=== PATIENT | female | born 1955 | race Caucasian/White ===

== ENCOUNTER 2022-06-29 14:05 | Emergency (ER) | payer MEDICARE, SELFPAY ==
[2022-06-29 15:44] VITALS: BP 146/74; PULSE 94; RESP 16; TEMP 36.9; O2SAT 96; BMI 28.5
--- NOTE | 2022-06-29 15:58 | EXP.UTC ---
Discharge Plan Disposition Patient Disposition: Home, Self-Care Condition: Good Prescriptions Prescriptions: New azithromycin [Zithromax] 250 mg tablet 250 mg PO UD DOSE PK Qty: 6 0RF Rx Instructions: Take two (2) tablets today, then one (1) tablet days #2 thru #5 Referrals Follow up/Referrals: Robson Rider MD [Primary Care Provider] - See instructions Activity Restrictions/Add. Instructions Additional Instructions/Restrictions: Drink plenty of fluids. Take tylenol or ibuprofen for pain or fever. Take the medications as directed. Follow up with your regular doctor. GO TO THE ER FOR ANY WORSENING SYMPTOMS Clinical Impressions Clinical Impression: Sinusitis Stand Alone Forms Stand Alone Forms: Work/School Release Instructions Patient Instructions: Sinusitis, DI for Sinusitis Discharge ED Provider: Vince Sanches [facility] General Stated complaint: cough, congestion Mode of Arrival: Ambulatory Source of Information: Patient Limitations: No Limitations Time Seen by Provider: 06/29/22 15:58 Description of Symptoms (Recalled from Triage Doc. by RN): pt comes in with c/o cough. pt states that she feels like she pulled a muscle in her back from coughing. pt was exposed to covid. HEENT Symptoms (Recalled from RN notes): No Resp Symptoms (Recalled from RN notes): Yes Skin Symptoms (Recalled from RN notes): No MS Symptoms (Recalled from RN notes): Yes Functional Status (Recalled from RN notes): n/a History of Present Illness Provider Complaint: She states that she has been coughing frequently and feeling bad for the past 1 day. She has been exposed to covid-19. Related Data Previous Rx's Medication Instructions Recorded azithromycin 250 mg tablet 250 mg PO UD DOSE PK #6 tabs 06/29/22 (Zithromax) Allergies Allergy/AdvReac Type Severity Reaction Status Date / Time Ibuprofen Allergy Unknown Uncoded 10/12/17 14:45 Nonsteroidal Allergy Unknown Uncoded 10/12/17 14:45 Antiinflammatory Drug Penicillin Allergy Unknown Uncoded 10/12/17 14:45 Sulfonamide Related Allergy Unknown Uncoded 10/12/17 14:45 Worker's Comp Is this a Worker's Comp case?: No PFSH PFSH Social History Smoking Status: Former smoker alcohol intake: never current occupational status: employed Travel in the last 8 weeks: None ROS Obtained: Yes All systems reviewed & no additional complaints except as documented Constitutional Constitutional: Reports chills and Reports fever(s) Eyes Eyes: Denies eye discharge ENT Ears, Nose, Mouth, and Throat: Reports as per HPI Cardiovascular Cardiovascular: Denies chest pain Respiratory Respiratory: Denies chest congestion and Reports cough Gastrointestinal Gastrointestingal: Reports nausea; Denies abdominal pain, constipation, cramping, diarrhea or vomiting Musculoskeletal Musculoskeletal: Denies arthralgias Integumentary/Breasts Skin/Breast: Denies rash Neurologic Neurologic: Denies paresthesias Physical Exam General General appearance: alert and in no apparent distress Head Head exam: atraumatic, normocephalic and normal inspection Eye Eye exam: Present normal appearance, PERRL and EOMI ENT ENT exam: Present mucous membranes moist and normal external ear exam Expanded ENT Exam TM/Canal exam: Bilateral TM: erythema and bulging Nose exam: Absent sinus tenderness Mouth exam: Present normal external inspection; Absent drooling Teeth exam: Present normal inspection Throat exam: Present tonsillar erythema, tonsillomegaly and tonsillar exudate Neck Neck exam: Present normal inspection, full ROM and trachea midline; Absent tenderness, meningismus or lymphadenopathy Chest Chest inspection: Present normal inspection and symmetric chest wall rise; Absent tenderness Respiratory Respiratory exam: Present normal lung sounds bilaterally; Absent respiratory distress, wheezes or stridor Cardiovascular Car
[2022-06-29 16:17] VITALS: BP 146/74; PULSE 94; RESP 16; TEMP 36.9
== END 2022-06-29 16:18 | disposition home or self-care (01) ==
PROVIDERS: Emergency Provider Nurse Practitioner Family; PCP Internal Medicine
DX: J32.9 Chronic sinusitis, unspecified (principal)
CPT/HCPCS: 96372; 99212; C9803; G0463; J0696; U0003; U0005

== ENCOUNTER 2024-02-16 14:20 | Outpatient (CLI) | payer MEDICARE, SELFPAY ==
[2024-02-16 15:01] LABS: Basophils # 0.1 K/mm3 (0-0.2); Basophils % 0.6 % (0.1-2.0); Eosinophils # 0.2 K/mm3 (0.0-0.4); Eosinophils % 2.1 % (0.1-12.0); Hematocrit 38.2 % (37.0-47.0); Hemoglobin 12.8 g/dL (12.2-16.2); Lymphocytes # 2.1 K/mm3 (0.7-4.5); Lymphocytes % 26.8 % (10-50); Mean Corpuscular HGB Conc 33.6 g/dL (31.8-35.4); Mean Corpuscular Hemoglobin 32.4 pg (27.0-31.2); Mean Corpuscular Volume 96.5 fl (81-99); Mean Platelet Volume 8.8 fl (7.4-10.4); Monocytes # 0.4 K/mm3 (0.1-1.0); Monocytes % 5.6 % (1.7-9.3); Neutrophils % 64.8 % (37.0-80.0); Platelet Count 237 K/mm3 (142-424); Red Blood Count 3.96 M/mm3 (4.20-5.40); Red Cell Distribution Width 14.7 % (11.5-17.5); White Blood Count 7.7 K/mm3 (4.8-10.8)
[2024-02-16 16:06] LABS: 25-OH Vitamin D, Total 30.3 ng/mL (30-100)
[2024-02-23 15:29] LABS: Immunoglobulin E, Total 20 IU/mL (6-495)
== END 2024-02-16 23:59 | disposition home or self-care (01) ==
LOC: LAB 14:21
PROVIDERS: PCP Internal Medicine; Visit Provider Allergy & Immunology
DX: J45.50 Severe persistent asthma, uncomplicated (principal)
CPT/HCPCS: 36415; 82306; 82785; 85025

== ENCOUNTER 2025-07-30 15:50 | Outpatient (CLI) | payer MEDICARE, SELFPAY ==
[2025-07-30 17:57] LABS: Hematocrit 40.3 % (37.0-47.0); Hemoglobin 13.2 g/dL (12.2-16.2); Immature Granulocytes % 0.3 %; Mean Corpuscular HGB Conc 32.8 g/dL (31.8-35.4); Mean Corpuscular Hemoglobin 31.6 pg (27.0-31.2); Mean Corpuscular Volume 96.4 fl (81-99); Nucleated Red Blood Cells % 0 %; Platelet Count 255 K/mm3 (142-424); Red Blood Count 4.18 M/mm3 (4.20-5.40); Red Cell Distribution Width-SD 46.9 fL; White Blood Count 7.5 K/mm3 (4.8-10.8)
[2025-07-30 19:08] LABS: Alanine Aminotransferase 15 U/L (12-78); Albumin Level 4.3 g/dl (3.5-5.0); Albumin/Globulin Ratio 1.8 (1.1-1.8); Alkaline Phosphatase 106 U/L (38-126); Anion Gap 15.6 mEq/L (5-15); Aspartate Amino Transferase 25 U/L (14-36); Bilirubin,Total 0.7 mg/dl (0.2-1.3); Blood Urea Nitrogen 12 mg/dl (7-17); Calcium 9.0 mg/dl (8.4-10.2); Carbon Dioxide 26 mmol/L (22.0-30.0); Chloride 102 mmol/L (98-107); Cholesterol 227 mg/dl (140-200); Creatinine,Serum 0.70 mg/dl (0.52-1.04); Estimated Glomerular Filt Rate 82 ml/min (>60); GFR (African American) 100 ML/MIN (>60); Globulin 2.4 g/dL (1.3-3.2); Glucose 83 mg/dl (74-100); HDL Cholesterol 56 mg/dl (40-60); Potassium 4.6 mmoL/L (3.5-5.1); Sodium 139 mmol/L (136-145); Total Protein,Serum 6.7 g/dl (6.3-8.2); Triglycerides 111 mg/dl (30-150)
--- OUTSIDE RECORDS SUMMARY | 2025-07-31 01:49 | XMS_ITS | Encounter Summary ---
Author Organization [place] [address] Care Team Providers Care Box Lining Machine Feeder Name Role Phone Delano Means MD Primary Care Provider Robson Duvall MD Primary Care Provider Unavailable Giacomo Delong MD Primary Care Provider Encounter Details Date Type Department Care Team (Late st Contact Info) Description 02/03/2018 E-Visit [facility] [address] [place] [address] Delano Means MD E-Visit Submission: Cough Social History Tobacco Use Types Packs/Day Years Used Date Smoking Tobacco: Every Day Smokeless Tobacco: Never Alcohol Use Standard Drinks/Week Comments Not Asked 0 (1 standard drink = 0.6 oz pur e alcohol) Comments No Sex and Gender Information Value Date Recorded Sex Assigned at Not on file Legal Sex Female 9:03 PM EDT Gender Identity Not on file Sexual Orientation Not on file documented as of this encounter Functional Status * Is the person deaf or does he/she have serious difficulty hearing? Answer Date of Assessment Author No 01/28/2018 12:04 PM EDT David Duncan RMA * Is the person blind or does he/she have serious difficulty seeing even when wearing glasses? Answer Date of Assessment Author No 01/28/2018 12:04 PM EDT David Duncan RMA * Does this person have serious difficulty walking or climbing stairs? Answer Date of Assessment Author No 01/28/2018 12:04 PM EDT David Duncan RMA * Does this person have difficulty dressing or bathing? Answer Date of Assessment Author No 01/28/2018 12:04 PM EDT David Duncan RMA * Because of a physical, mental or emotional condition, does this person have difficulty doing errands alone such as visiting a doctor's office or shopping? Answer Date of Assessment Author No 01/28/2018 12:04 PM EDT David Duncan RMA documented as of this encounter Mental Status * Because of a physical, mental or emotional condition, does this person have serious difficulty concentrating, remembering or making decisions? Answer Entry Date Author No 01/28/2018 12:04 PM EDT David Duncan RMA documented in this encounter Plan of Treatment Not on file documented as of this encounter Goals Goal Patient Goal Type Associated Problems Recent Progress Patient-Stated? Author Eat better, exercise, reach an ideal body weight General No Delano Means MD Stay Tobacco Free Lifestyle No Delano Means MD documented as of this encounter Visit Diagnoses Not on filedocumented in this encounter Additional Health Concerns Assessment Noted Time PHQ-9 Depression Total Score: 1 01/29/20 18 12:04 PM EDT PHQ-2 Depression Total Score: 1 01/29/20 18 12:04 PM EDT documented as of this encounter Care Teams Box Lining Machine Feeder Relationship Specialty Start Date End Date Delano Means MD PCP - General Internal Medicine 02/14/13 10/28/20 Robson Rider MD PCP - General Internal Medicine 10/29/20 09/01/22 Giacomo Delong MD [address] [facility] [address] [place] [address] PCP - General Internal Medicine 09/02/22 11/01/23 documented as of this encounter
--- OUTSIDE RECORDS SUMMARY | 2025-07-31 01:49 | XMS_ITS | Encounter Summary ---
Author Organization [place] [address] Care Team Providers Care Pathology Laboratory Director Name Role Phone Delano Means MD Primary Care Provider Robson Duvall MD Primary Care Provider Unavailable Giacomo Delong MD Primary Care Provider Encounter Details Date Type Department Care Team (Late st Contact Info) Description 05/24/2018 E-Visit [facility] [address] [place] [address] Delano Means MD RE:(No subject) Social History Tobacco Use Types Packs/Day Years [...] No 01/28/2018 12:04 PM EDT David Duncan RMAlise * Because of a physical, mental or emotional condition, does this person have difficulty doing errands alone such as visiting a doctor's office or shopping? Answer Date of Assessment Author No 01/28/2018 12:04 PM EDT David Duncan RMAlise documented as of this encounter Mental Status * Because of a physical, mental or emotional condition, does this person have serious difficulty concentrating, remembering or making decisions? Answer Entry Date Author No 01/28/2018 12:04 PM EDT David Duncan RMA documented in this encounter Ordered Prescriptions Prescription Sig Dispense Quantity Refills Last Filled Start Date End Date levOFLOXacin (LEVAQUIN) 250 mg Oral Tablet Take 1 Tab by mouth daily for 7 days. 7 Tab 1 05/25/2018 06/01/2018 documented in this encounter Miscellaneous Notes * Patient Instructions - Delano Means MD - 05/24/2018 2:40 PM EDT Sent In meds Call prn documented in this encounter Plan of Treatment [...] documented as of this encounter Care Teams Pathology Laboratory Director Relationship Specialty Start Date End Date Delano Means MD PCP - General Internal Medicine 02/14/13 10/28/20 Robson Rider MD PCP - General Internal Medicine 10/29/20 09/01/22 Giacomo Delong MD [address] [place] [id number] PCP - General Internal Medicine 09/02/22 11/01/23 documented as of this encounter
--- OUTSIDE RECORDS SUMMARY | 2025-07-31 01:49 | XMS_ITS | Clinical Summary ---
Author Organization [facility] Address [address] [place] [address] Care Team Providers Care Soldering Inspector Name Role Phone Thu Bazan Primary Care Provider Unavailabl e Allergies Active Allergy Reactions Criticality Noted Date Comments Penicillins Anaphylaxis High 08/28/2016 Sulfa Antibiotics Anaphylaxis High 08/28/2016 Medications Zolpidem Tartrate (AMBIEN PO) Take by mouth Every Night. Active HYDROCODONE BITARTRATE PO Take by mouth. Active magnesium 30 MG tablet Take 30 mg by mouth 2 (Two) Times a Day. Active tiZANidine (ZANAFLEX) 4 MG tablet Take 4 mg by mouth At Night As Needed for muscle spasms. Active Family History Medical History Relation Name Comments Heart disease Father Heart disease Mother Relation Name Status Comments Father Mother Social History Tobacco Use Types Packs/Day Years Used Date Smoking Tobacco: Every Day Cigarettes Tobacco Cessation:Ready to Q uit: No; Counseling Given: No Abuse Screen Answer Date Recorded Unsafe at Home or Work/School Not on file Feels Threatened by Someone? Not on file 06/2023 Does Anyone Keep You from Co ntacting Others or Doint Things Outside the Home? Not on file 08/02/2023 Physical Sign of Abuse Present Not on file 1 Housing Stability Answer Date Recorded Current Living Arrangements Not on file 06/2023 Potentially Unsafe Housing Conditions Not on elba e 08/02/2023 Family and Community Support Answer Julian e Recorded Help with Day-to-Day Activities Not on file 08/02/2023 Lonely or Isolated Not on file 08/02/2023 Employment Answer Date Recorded Do you want help finding or keeping work or a buddy b? Not on file 08/02/2023 Disabilities Answer Date Recorded Concentrating, Remembering, or Making Decisions Difficulty Not on file 08/02/2023 Doing Errands Independently Difficulty Not on fi le 08/02/2023 Education Answer Date Recorded Help with school or training? Not on file Preferred Language Not on file 08/02/2023 Comments No Sex and Gender Information Value Date Recorded Sex Assigned at Not on file Legal Sex Female 11:33 AM EDT Gender Identity Not on file Sexual Orientation Not on file Last Filed Vital Signs Vital Sign Reading Time Taken Comments Blood Pressure - - Pulse 70 08/28/2016 5:58 PM EDT Temperature 36.6 C (97.9 F) 08/28/2016 5:58 PM EDT Respiratory Rate 18 08/28/2016 5:58 PM EDT Oxygen Saturation 99% 08/28/2016 5:58 PM EDT Inhaled Oxygen Concentration - - Weight 87.5 kg (193 lb) 08/28/2016 5:58 PM EDT Height 172.7 cm (5' 8 ) 08/28/2016 5:58 PM EDT Body Mass Index 29.35 08/28/2016 5:58 PM EDT Plan of Treatment Health Maintenance Due Date Last Done Comments ANNUAL PHYSICAL 1955 DXA SCAN 1955 HEPATITIS C SCREENING 1955 TDAP/TD VACCINES (1 - Tdap) 1972 MAMMOGRAM 1993 COLOGUARD 1998 COLON CANCER SCREENING 5 YEAR SIGMOIDOSCOPY 1998 COLONOSCOPY 1998 COLORECTAL CANCER SCREENING 1998 CT COLONOGRAPHY 1998 FECAL OCCULT BLOOD TEST 1998 FIT Testing (1 year) 1998 Pneumococcal Vaccine 50+ (1 of 1 - PCV) 2003 ZOSTER VACCINE (1 of 2) 2003 INFLUENZA VACCINE 05/25/2025 COVID-19 Vaccine (1 - season) 2025 Insurance [facility] P[facility] Care Teams Soldering Inspector Relationship Specialty Start Date End Date Thu Bazan PCP - General 08/28/16
--- OUTSIDE RECORDS SUMMARY | 2025-07-31 01:49 | XMS_ITS | Encounter Summary ---
Author Organization [place] [address] Care Team Providers Care Elevator Serviceman Name Role Phone Delano Means MD Primary Care Provider Robson Duvall MD Primary Care Provider Unavailable Giacomo Delong MD Primary Care Provider [phone] Encounter Details Date Type Department Care Team (Late st Contact Info) Description 10/29/2017 E-Visit [facility] [address] [place] [address] Delano Means MD RE: E-Visit Submission: Sinus Problems Social History Tobacco Use Types Packs/Day Years [...] on file documented as of this encounter Ordered Prescriptions Prescription Sig Dispense Quantity Refills Last Filled Start Date End Date doxycycline (MONODOX) 100 mg Oral Capsule Take 1 Cap by mouth 2 times daily for 10 days. 20 Cap 10/29/2017 11/08/2017 ipratropium (ATROVENT) 0.03 % Nasl [place], Non-Aerosol 2 Sprays by Nasal route 3 times daily. 30 mL 10/29/2017 12/15/2018 documented in this encounter Miscellaneous Notes * Patient Instructions - Giacomo Dleong MD - 10/29/2017 2:26 PM EST Dear Jacqueline, Thank you for using our e-visit services for your care concern today.?? Based upon the information you provided in your e-visit it is likely that you have: 1. Acute bacterial sinusitis The recommended options for treatment of this issues are antibiotic, nasal spray, antihistamine.?? Please remember that e-visits are not a replacement for a face to face visit with one of your healthcare professionals and doesn't replace a physical exam.?? As many conditions can have similar initial symptoms it is important to be aware that if your symptoms are not getting better in the expectedtimeframe with the above treatment or if you feel that the diagnosis doesn't seem correct we recommend you schedule and in office visit with your regular primary care provider as soon as possible forfurther evaluation.?? In the Visit Summaries section of your avolution account under the Visits tab you will find the further information on the condition for which you have been diagnosed and treated as well as informationon where those guidelines for treatment come from.?? If you have any further questions or if there is confusion about your visit, diagnosis, or treatment please contact us so we can provide further assistance if needed. If you were provided with medication related treatment, that information is below and if a prescription medication was used the pharmacy where it was sent is listed as well. The following medications were ordered and sent to the below pharmacy: Refills ipratropium (ATROVENT) 0.03 % Nasl [place], Non-Aerosol 0 Sig - Route: 2 Sprays by Nasal route 3 times daily. - Nasal Pharmacy: [facility] [place] [phone] [address] [address] - [phone] Ph #: [phone] doxycycline (MONODOX) 100 mg Oral Capsule 0 Sig - Route: Take 1 Cap by mouth 2 times daily for 10 days. - Oral Pharmacy: [facility] [phone] [address] [address] - [phone] Ph #: [phone] Please get Claritin or generic otc . Sincerely, Giacomo Delong MD documented in this encounter Plan of Treatment Not on file documented as of this encounter Goals Goal Patient Goal Type Associated Problems Recent Progress Patient-Stated? Author Eat better, exercise, reach an ideal body weight General No Delano Means MD Stay Tobacco Free Lifestyle No Delano Means MD documented as of this encounter Visit Diagnoses Diagnosis Acute bacterial sinusitis- Primary Acute sinusitis, unspecified documented in this encounter Care Teams Elevator Serviceman Relationship Specialty Start Date End Date Delano Means MD PCP - General Internal Medicine 02/14/13 10/28/20 Robson Rider MD PCP - General Internal Medicine 10/29/20 09/01/22 Giacomo Delong MD [address] [facility] [address] [place] [address] PCP - General Internal Medicine 09/02/22 11/01/23 documented as of this encounter
--- OUTSIDE RECORDS SUMMARY | 2025-07-31 01:50 | XMS_ITS | Encounter Summary ---
Author Organization [place] [address] Care Team Providers Care Cyberathlete Name Role Phone Delano Means MD Primary Care Provider Robson Duvall MD Primary Care Provider Unavailable Giacomo Delong MD Primary Care Provider [phone] Encounter Details Date Type Department Care Team (Late st Contact Info) Description 11/13/2018 E-Visit [facility] [address] [place] [address] Delano Means MD RE:(No subject) [...] Refills Last Filled Start Date End Date Brompheniramine-Ps eudoeph-DM 2-30-10 mg/5 mL Oral Syrup Take 10 mL by mouth every 4 hours as needed (Cough, Nasal Congestion, Allergies). 120 mL 1 11/15/2018 10/31/2019 predniSONE (DELTASONE) 10 mg Oral Tablet Take 1 Tab by mouth 2 times daily. 14 Tab 2 11/15/2018 01/17/2019 documented in this encounter Progress Notes * Delano Means MD - 11/13/2018 3:27 PM ESTFrom: Delano Means MD To: Jacqueline Elda Garibay Sent: 11/14/2018 10:01 AM EST Mult probs Do You Want a Visit Or just meds documented in this encounter Plan of Treatment Not on file documented as of this encounter Goals Goal Patient Goal Type Associated Problems Recent Progress Patient-Stated? Author Eat better, exercise, reach an ideal body weight General No Delano Means MD Stay Tobacco Free Lifestyle No Delano Means MD documented as of this encounter Visit Diagnoses Diagnosis Cough- Primary documented in this encounter Additional Health Concerns Assessment Noted Time PHQ-9 Depression Total Score: 1 01/29/20 18 12:04 PM EDT A fall risk assessment has been complete d for the patient 10/19/2018 2:10 PM EST PHQ-2 Depression Total Score: 1 01/29/20 18 12:04 PM EDT documented as of this encounter Care Teams Cyberathlete Relationship Specialty Start Date End Date Delano Means MD PCP - General Internal Medicine 02/14/13 10/28/20 Robson Rider MD PCP - General Internal Medicine 10/29/20 09/01/22 Giacomo Delong MD [address] [address] PCP - General Internal Medicine 09/02/22 11/01/23 documented as of this encounter
--- OUTSIDE RECORDS SUMMARY | 2025-07-31 01:50 | XMS_ITS | Encounter Summary ---
Author Organization [place] [address] Care Team Providers Care Digital Media Analyst Name Role Phone Delano Means MD Primary Care Provider Robson Duvall MD Primary Care Provider Unavailable Giacomo Delong MD Primary Care Provider [phone] Encounter Details Date Type Department Care Team (Late st Contact Info) Description 05/11/2016 E-Visit [facility] [address] [place] [address] Delano Means MD E-Visit Submission: Sinus Problems Social History Tobacco [...] on file documented as of this encounter Plan of Treatment Not on file documented as of this encounter Visit Diagnoses Not on filedocumented in this encounter Care Teams Digital Media Analyst Relationship Specialty Start Date End Date Delano Means MD PCP - General Internal Medicine 02/14/13 10/28/20 Robson Rider MD PCP - General Internal Medicine 10/29/20 09/01/22 Giacomo Delong MD [address] [place] [address] PCP - General Internal Medicine 09/02/22 11/01/23 documented as of this encounter
--- OUTSIDE RECORDS SUMMARY | 2025-07-31 01:50 | XMS_ITS | Clinical Summary ---
Author Organization [facility] Address [address] [place] [address] Phone Care Team Providers Care Pattern Setter Name Role Phone Unavailable Primary Care Provider Unavailabl e Allergies Active Allergy Reactions Criticality Noted Date Comments Penicillins 06/20/2010 Pseudoephedrine Hcl Other (See Comments) 02/23/2022 Heart race, skin crawl Sulfa (Sulfonamide Antibiotics) 06/20/2010 Medications multivitamin (THERAGRAN) Oral Tablet Take 1 Tab by mouth daily. Active magnesium oxide (MAG-OX) 400 mg Oral Tablet Take 400 mg by mouth daily. Active ibuprofen (ADVIL;MOTRIN) 200 mg Oral Tablet Take 400 mg by mouth 2 times daily. Active Arm Brace (WRIST BRACE) [facility] [address] [facility].(Non-Drug ; Combo Route) route continuous as needed. Left wrist thumb spica brace. 1 Each 7 Active Cholecalciferol, Vitamin D3, 2,000 unit Oral Capsule Take 2,000 Units by mouth daily. Active cyanocobalamin, vitamin B-12, (VITAMIN B12 ORAL) 2,500 mg. A ctive turmeric/turmeric ext/pepr ext (TURMERIC-TURMERIC EXT-PEPPER) 500-3 mg Oral Capsule Take by mouth. Active ergocalciferol (VITAMIN D) 1,250 mcg (50,000 unit) Oral CapsuleIndications :Vitamin D deficiency,Postmen opausal osteoporosis Take 1 Capsule by mouth once a week. 5 Capsule 11 2 Active calcium citrate/vitamin D3 (CALCITRATE-VITAMI N D ORAL) Take by mouth daily. Active rutin/hesp/bioflav /[id number] (BIOFLEX ORAL) Take by mouth daily. Active MAGNESIUM ORAL Take by mouth daily. Active Collagenase Misc Powder by Mis.(Non-Drug ; Combo Route) route. Active zolpidem (AMBIEN) 10 mg Oral TabletIndications: Stress,Insomnia, persistent Take 1 Tablet by mouth nightly as needed for Sleep for up to 60 days. 30 Tablet 1 2 Active HYDROcodone-acetam inophen (NORCO) 10-325 mg Oral TabletIndications: Chronic allergic rhinitis,Pain syndrome, chronic,Localized osteoarthritis of both hands,DDD (degenerative disc disease), lumbosacral,Spondy lolisthesis of lumbar region,Primary osteoarthritis of right knee,Acute cough Take one tablet by mouth twice daily as needed 58 Tablet 2 Active atorvastatin (LIPITOR) 20 mg Oral Tablet Take 1 Tablet by mouth daily. 30 Tablet 2 2 Active tiZANidine (ZANAFLEX) 4 mg Oral TabletIndications: Pain syndrome, chronic,Localized osteoarthritis of both hands,DDD (degenerative disc disease), lumbosacral,Spondy lolisthesis of lumbar region,Primary osteoarthritis of right knee TAKE ONE TABLET BY MOUTH 3 TIMES A DAY 90 Tablet 2 Active Active Problems Patient Care Coordination No te Formatting of this note migh t be different from the original. [facility] audit completed by Raegan Tesfaye RN on 09/23/2022. [facility] audit completed by Kirsty Ramirez RN on 07/16/2022. Contract- 01/20/21(Kimberly Payette) Consent- 01/20/21 SOAPP: 01/20/21 Drug Screen- 03/24/22 Julius- [id number] 11/18/21, [id number] 02/23/22, [id number] 06/19/22, [id number] 07/23/22. 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 Vitamin D deficiency 03/06/2013 Immunizations Immunization Administration Dates Next Due Influenza High Dose 07/24/2019(Deferred: Patient Refused) Pneumococcal Conjugate Vacci ne 13 Valent 06/15/2016 Quadrivalent Influenza High Dose 021(Deferred: Patient Refused),10/29/2020(Deferred: Patient Refused) Tdap 09/10/2015 Surgical History Surgery Date Site/Laterality Comments CATARACT REMOVAL WITH IMPLANT Bilateral JOINT REPLACEMENT 2000 and 2001 Right knee miniscus repair EYE SURGERY 2020 Bilateral cataracts removed TUBAL LIGATION 1978 Family History Medical History Relation Name Comments Arthritis Brother Stephan Mack Osteoarthritis Arthritis Father Anh Mack Osteoarthritis High Blood Pressure Father Anh Mack Hyperte nsion Kidney Disease Father Anh Mack ESRD Arthritis Mother Chloé Mack RA and osteoa rthritis Heart Disease Mother Chloé Mack Afib and CHF Arthritis Sister Luis Manuel Almaguer Osteoarthritis Relation Name Status Comments Brother Stephan Mack Osteoarthritis Father Anh Mack Mother Chloé Almaguer Social History Tobacco Use Types Packs/Day Years Used Date Smoking Tobacco: Light Smoker Cigarettes 0.3 40 Smokeless Tobacco: Never Tobacco Cessation:Ready to Q uit: No Alcohol Use Standard Drinks/Week Comments Yes 1 (1 standard drink = 0.6 oz pur e alcohol) Occasional glass of wine PHQ-2 Answer Date Recorded PHQ-2 Total Score 0 07/24/2022 Sexually Active Control Partners Comments Yes Post-menopausal Male Comments No Sex and Gender Information Value Date Recorded Sex Assigned at Not on file Legal Sex Female 9:03 PM EDT Gender Identity Not on file Sexual Orientation Not on file Last Filed Vital Signs Vital Sign Reading Time Taken Comments Blood Pressure 124/78 07/24/2022 3:19 PM EDT Pulse 74 07/24/2022 3:19 PM EDT Temperature 36.8 C (98.2 F) 07/24/2022 3:19 PM EDT Respiratory Rate 16 02/23/2022 3:31 PM EDT Oxygen Saturation 98% 07/24/2022 3:19 PM EDT Inhaled Oxygen Concentration - - Weight 85.1 kg (187 lb 9.6 oz) 07/24/2022 3:19 P M EDT Height 167.6 cm (5' 6 ) 07/24/2022 3:19 PM EDT Body Mass Index 30.28 07/24/2022 3:19 PM EDT Plan of Treatment Health Maintenance Due Date Last Done Comments Colonoscopy 1998 FIT 1998 Sigmoidoscopy 1998 Virtual Colonography 1998 Zoster (1 of 2) 2003 Pneumococcal Vaccine 50+ (2 of 2 - PPSV23, PCV20, or PCV21) 08/10/2016 06/15/2016 Breast Cancer Screening 02/14/2023 02/15/20 21, 07/20/2016, 10/02/2013 Annual Wellness Exam 07/24/2023 COVID-19 Vaccine ( season) 2025 Influenza Vaccine (#1) 2025 2, 06/25/2017 (Declined), 12/30/2016 (Declined), Additional history exists DTaP/TDaP/Td (2 - Td or Tdap) 09/10/2025 09/10/2015 Cologuard 11/11/2026 11/11/2023, 10/25, 01/09/2020, Additional history exists Colon Cancer Screening 11/11/2026 Hepatitis C Screening Completed 07/23/2021, 021 Bone Density Screening Completed 09/11/2021 Hepatitis B Vaccine Aged Out No longe r eligible based on patient's age to complete this topic Meningococcal B Vaccine Aged Out No l onger eligible based on patient's age to complete this topic Goals Goal Patient Goal Type Associated Problems Recent Progress Patient-Stated? Author Eat better, exercise, reach an ideal body weight General No Delano Means MD Stay Tobacco Free Lifestyle No Delano Means MD Procedures Procedure Name Priority Date/Time Associated Diagnosis Comments COLOGUARD Routine 11/11/2023 3:00 PM EST Screening for cancer of the rectum Screen for colon cancer DX BONE DENSITY AXIAL INCLUDING VERTEBRAL FRACTURE ASSESSMENT Routine 09/11/2021 3:57 PM EST Vitamin D deficiency Annual physical exam Screening for osteoporosis Post-menopausal osteoporosis HCV ANTIBODY SCREEN W/ REFLEX Routine 07/23/2021 4:00 PM EDT Annual physical exam Need for hepatitis C screening test MM MAMMO DIGITAL SCREENING W CAD BILAT Routine 02/14/2021 3:09 PM EDT Visit for screening mammogram from Last 3 Months or Most Recently Relevant to Health Maintenance Results * (ABNORMAL) COLOGUARD (11/11/2023 3:00 PM EST) COLOGUARD CLINICAL REPORT Positive( A) Negative [facility] Comment: POSITIVE TEST RESULT. A positive Cologuard result should be followed with a colonoscopy or visual examination of the colon. The normal value (reference range) for this assay is negative. TEST DESCRIPTION: Composite algorithmic analysis of stool DNA-biomarkers with hemoglobin immunoassay. Quantitative values of individual biomarkers are not reportable and are not associated with individual biomarker result reference ranges. Cologuard is intended for colorectal cancer screening of adults of either sex, 45 years or older, who are at average-risk for colorectal cancer (CRC). Cologuard has been approved for use by the U.S. FDA. The performance of Cologuard was established in a cross sectional study of average-risk adults aged 50-84. Cologuard performance in patients ages 45 to 49 years was estimated by sub-group analysis of near-age groups. Colonoscopies performed for a positive result may find as the most clinically significant lesion: colorectal cancer [4.0%], advanced adenoma (including sessile serrated polyps greater than or equal to 1cm diameter) [20%] or non- advanced adenoma [31%]; or no colorectal neoplasia [45%]. These estimates are derived from a prospective cross-sectional screening study of 10,000 individuals at average risk for colorectal cancer who were screened with both Cologuard and colonoscopy. (Je Murillo al, N Engl J Med 2014;370(14):9292-6553.) Cologuard may produce a false negative or false positive result (no colorectal cancer or precancerous polyp present at colonoscopy follow up). A negative Cologuard test result does not guarantee the absence of CRC or advanced adenoma (pre-cancer). The current Cologuard screening interval is every 3 years. ([place] [employer] Society and U.S. Multi-Society Task Force). Cologuard performance data in a 10,000 patient pivotal study using colonoscopy as the reference method can be accessed at the following location: www.SpotOn/results. Additional description of the Cologuard test process, warnings and precautions can be found at [email or web address]. Stool 11/11/2023 3:00 PM EST 11/13/2023 8:15 AM EST us Giacomo Delong MD [email or web address] SCIENCE - ORDERABLES Final Result Performing Organization Address City/State/[facility] Co de Phone Number [employer] [address] [facility] [address] [place] [address] * DX BONE DENSITY AXIAL INCLUDING VERTEBRAL FRACTURE ASSESSMENT (09/11/2021 3:57 PM EST) Anatomical Region Laterality Modality Dexa Scan 09/11/2021 Narrative 09/12/2021 12:38 PM EST Indication: The patient is a female age 65 or older who requires a bone density assessment. Study was performed on [employer] 5. Bone Density: Region BMD T-score Z-score AP Spine (L1-L4) 0.798 -2.3 -0.3 Femoral Neck (Left) 0.766 -0.7 0.9 Total Hip (Left) 0.908 -0.3 1.1 Femoral Neck (Right) 0.715 -1.2 0.5 Total Hip (Right) 0.905 -0.3 1.1 1/3 Radius (Left) 0.509 -3.1 -1.2 World Health Organization criteria for BMD interpretation classify patients as: Normal (T-score at or above -1.0), Low Bone Density (T-score between -1.0 and -2.5), or Osteoporotic (T-score at or below -2.5). T Scores are reported in Postmenopausal women and in men age 50 and older. Z-scores are reported in females prior to menopause and in males younger than age 50. Vertebral Deformity Assessment: Exam date 09/11/2021 Vertebral Level Impression T10 Normal T11 Normal T12 Normal L1 Normal L2 Normal L3 Normal L4 Normal A spine fracture indicates 5X risk for subsequent spine fracture and 2X risk for subsequent hip fracture. Clinical Information Provided by Patient: Smokes Has used or is currently using the following medications: Calcium, Vitamin D Has had or currently has the following medical conditions: Back pain, Vitamin D Insufficiency Patient maximum height was 68 Menopause Age: 47 Patient is postmenopausal Interpretation: Bone mineral density is in the osteoporotic range. Medical evaluation for secondary causes of low bone density may be appropriate. A minimum of two years may be required between bone density studies due to inherent testing precision limitations. Intervals between BMD testing should be determined according to each patient's clinical status: typically one year after initiation or change of therapy is appropriate, with longer intervals once therapeutic effect is established. The vertebral fracture assessment is interpretable from T10 to L4. No vertebral fractures are identified. The vertebral fracture assessment is normal. Note: VFA is designed to detect vertebral fractures and no other abnormalities. Reported by: Bella You PA-C, CCD on 09/12/2021 11:02:00 AM. Robson Rider MD IMG DEXA ORDERABLES Fin al Result * HEPATITIS C ANTIBODY - SCREENING (07/23/2021 4:00 PM EDT) Hep C Ab Non-Reactiv e Non-Reacti ve 07/23/2021 10:21 PM EDT PREFERRED [facility] Blood VENOUS BLOOD / Unknown Venipuncture / Unknown 07/23/2021 4:00 PM EDT 07/23/2021 4:01 PM EDT Robson Rider MD HEMATOLOGY ORDERABLES F inal Result PREFERRED LAB [facility] [address] [facility] , [address] [place] [id number] * MM MAMMO DIGITAL SCREENING W CAD BILAT (02/14/2021 3:09 PM EDT) Anatomical Region Laterality Modality Breast Bilateral Mammography 02/14/2021 3:49 PM EDT Impressions 02/14/2021 3:49 PM EDT Negative ([id number]) ~ RECOMMENDATION: Routine screening mammogram in 1 year. ~ DISCLAIMER * Any patient with a palpable abnormality, unexplained by breast imaging, should be managed on clinical basis by the attending physician. * Breast imaging has a false negative rate of 15%. * The patient was notified by mail of the results of this examination. *The patient's information was entered into a reminder system with a target due date for the next mammogram, in accordance with the [place] [employer] and the Society of Breast Imaging recommendations. The mammogram was reviewed by a Radiologist and CAD. Narrative 02/14/2021 3:49 PM EDT Procedure:MM MAMMO DIGITAL SCREENING W CAD BILAT ~ Reason for exam: screening, asymptomatic. Z12.31-Encounter for screening mammogram for malignant neoplasm of [id number] ~ MM MAMMO DIG SCREEN CAD BILAT Bilateral CC and MLO view(s) were taken. There are scattered fibroglandular densities. Prior study comparison: Compared with prior studies the most recent being 07/20/16, 10/02/13 No mammographic evidence of malignancy. ~ Procedure Note Yee Tran MD - 02/14/2021 Procedure:MM MAMMO DIGITAL SCREENING W CAD BILAT ~ Reason for exam: screening, asymptomatic. Z12.31-Encounter for screening mammogram for malignant neoplasm of [id number]-TIB-36-CM ~ MM MAMMO DIG SCREEN CAD BILAT Bilateral CC and MLO view(s) were taken. There are scattered fibroglandular densities. Prior study comparison: Compared with prior studies the most recentbeing 07/20/16, 10/02/13 No mammographic evidence of malignancy. ~ IMPRESSION: Negative ([id number]) ~ RECOMMENDATION: Routine screening mammogram in 1 year. ~ DISCLAIMER * Any patient with a palpable abnormality, unexplained by breast imaging, should be managed on clinical basis by the attending physician. * Breast imaging has a false negative rate of 15%. * The patient was notified by mail of the results of this examination. *The patient's information was entered into a reminder system with atarget due date for the next mammogram, in accordance with the [place] [employer] and the Society of Breast Imaging recommendations. The mammogram was reviewed by a Radiologist and CAD. us Robson Rider MD IMG MAMMOGRAPHY ORDERAB LES Final Result from Last 3 Months or Most Recently Relevant to Health Maintenance Insurance [employer]ARE [employer]AGE MR [employer] [facility] [place] [address] [employer] MED[employer]ARE [employer]AGE MR * Guarantor: Evens Garibay Account Type Relation to Patient Date of Phone Billing Address [place] Personal Family Self
--- OUTSIDE RECORDS SUMMARY | 2025-07-31 01:50 | XMS_ITS | Clinical Summary ---
Author Organization [facility] Address [address] [place] [address] Care Team Providers Care Electrophysiologist Name Role Phone Robson Rider MD Primary Care Provider [phone] Allergies Active Allergy Reactions Criticality Noted Date Comments Penicillins Anaphylaxis High 06/20/2010 Pseudoephedrine Unknown - Patient st ates they do not know rxn details Low 02/23/2022 Heart race, skin crawl Sulfa Drugs Anaphylaxis High 06/20/2010 Medications tiZANidine (Zanaflex) 4 MG tablet 05/29/2021 Active HYDROcodone-acetam inophen ([place]) 10-325 MG tablet 05/29/2021 Ac tive zolpidem (Ambien) 10 MG tablet 05/22/2022 Active Active Problems Problem Noted Date Diagnosed Date Primary osteoarthritis of knees, bilateral 10/29 Primary osteoarthritis of one knee, left 021 Social History Tobacco Use Types Packs/Day Years Used Date Smoking Tobacco: Never Smokeless Tobacco: Never PHQ-2 Answer Date Recorded Patient Health Questionnaire-2 Score 0 06/10/2022 Comments Unknown Sex and Gender Information Value Date Recorded Sex Assigned at Not on file Legal Sex Female 7:45 PM EDT Gender Identity Not on file Sexual Orientation Not on file Last Filed Vital Signs Vital Sign Reading Time Taken Comments Blood Pressure 114/76 06/10/2022 9:48 AM EDT Pulse 83 06/10/2022 9:48 AM EDT Temperature - - Respiratory Rate 20 06/18/2021 10:48 AM EDT Oxygen Saturation 95% 06/10/2022 9:48 AM EDT Inhaled Oxygen Concentration - - Weight 83.5 kg (184 lb 1.4 oz) 06/10/2022 9:48 A M EDT Height 167.6 cm (5' 6 ) 06/10/2022 9:48 AM EDT Body Mass Index 29.71 06/10/2022 9:48 AM EDT Plan of Treatment Health Maintenance Due Date Last Done Comments [facility]-Bone Density Scan 1955 [facility]-Depression Screening 1955 [facility]-/Child/Adol SDOH Screenings 1955 [facility]- SDOH Screenings 1971 [facility]-Adult SDOH Screenings 1971 CT Colonography 1998 Colonoscopy 1998 FIT-DNA 1998 FIT 1998 FOBT 1998 Sigmoidoscopy 1998 [facility]-Colorectal Cancer Screening 1998 [facility]-Zoster Vaccines (1 of 2) 2003 [facility]-Pneumococcal Vaccine: 50 + Years (2 of 2 - PCV20 or PCV21) 06/15/2017 06/15/2016 NCO-[id number]-30 Vaccine (1 - season) 2025 [facility]-Influenza Vaccine (#1) 2025 [facility]-DTaP,Tdap,and Td Vaccine s (2 - Td or Tdap) 09/10/2025 09/10/2015 [facility]-RSV Vaccine: 60+ Years o r (1 - 1-dose 75+ series) 2028 [facility]-Breast Cancer Screening Discontinued 01/24, 07/20/2016, 10/02/2013 HPV Vaccines Aged Out No longer eligi ble based on patient's age to complete this topic [facility]-HIB Vaccines Aged Out No longer e ligible based on patient's age to complete this topic [facility]-Hepatitis A Vaccines Aged Out No longer eligible based on patient's age to complete this topic [facility]-IPV Vaccines Aged Out No longer e ligible based on patient's age to complete this topic [facility]-Rotavirus Vaccines Aged Out No lo nger eligible based on patient's age to complete this topic Insurance [facility] Care Teams Electrophysiologist Relationship Specialty Start Date End Date Robson Rider MD PCP - General 06/09/21
== END 2025-07-30 23:59 ==
LOC: LAB.DROPOF 07-31 01:48
PROVIDERS: PCP Internal Medicine; Visit Provider Internal Medicine
DX: E78.5 Hyperlipidemia, unspecified (principal); M15.0 Primary generalized (osteo)arthritis; J45.991 Cough variant asthma
CPT/HCPCS: 80053; 80061; 85025